=== PATIENT | male | born 1990 | race Caucasian/White ===

== ENCOUNTER 2017-09-01 10:54 | Emergency (ER) | payer OTHER ==
[~2017-09-01] VITALS: Ht 190.5 cm; Wt 104.3 kg
[~2017-09-01 10:54] MED LIST: ACET-2267 PO; ACHD5005 PO; CLIN300C11 PO; ETAN50DI2 SQ; L.AC1CAP6 PO
[2017-09-01] MEDS ORDERED: NS IV 1000 ML 1,000 ML IV ONE (11:13)
[2017-09-01] MEDS ORDERED: KETOROLAC 30 MG/ML VIAL IVP STA (11:13)
--- NOTE | 2017-09-01 11:24 | ED General ---
General Stated Complaint: WEAK, DISMISSED FROM HOSPITAL 08/28, CELLULITIS Source of Information: Patient Exam Limitations: No Limitations (SILVIA CABEZAS MD) History of Present Illness Date Seen by Provider: Sep 01, 2017 Time Seen by Provider: 11:08 Initial Comments Here with report of feeling weak and having some increased swelling after being discharged from the hospital earlier this week. He was seen, treated and ultimately released after presenting with left lower jaw facial cellulitis likely from tooth infection. Patient has been on clindamycin. States he was better but started getting worse overnight. Feels like he is just sick and has upper respiratory symptoms as well. Has sore throat and nasal congestion. He is on Enbrel for rheumatoid arthritis. Timing/Duration: 1-2 Days, Changing Over Time, Getting Worse Severity: Moderate Associated Systoms: No Chest Pain, No Cough, No Fever/Chills; Malaise; No Nausea/Vomiting, No Shortness of Air, No Weakness (SILVIA CABEZAS MD) Allergies and Home Medications Allergies Coded Allergies: cefaclor (Verified Allergy, Unknown, 09/01/17) Home Medications Acetaminophen 500 Mg Tablet, 1,000 MG PO Q6H PRN for PAIN-MILD, (Reported) Clindamycin HCl 300 Mg Capsule, 300 MG PO Q8H Prescribed by: JEANMARIE GRIFFITH on 08/28/17 1218 Etanercept 50 Mg/1 Ml Syringe, 50 MG SQ EVERY 2 WEEKS, (Reported) Hydrocodone Bit/Acetaminophen 1 Tab Tab, 1 TAB PO Q4H PRN for PAIN-MODERATE Prescribed by: JEANMARIE GRIFFITH on 08/28/17 1218 L.acidoph & Paracasei,B.lactis 1 Each Capsule, 1 EACH PO AC Prescribed by: JEANMARIE GRIFFITH on 08/28/17 1219 Patient Home Medication List Home Medication List Reviewed: Yes (SILVIA CABEZAS MD) Review of Systems Constitutional: see HPI; No fever; malaise EENTM: see HPI, dental problems, mouth pain, mouth swelling, nose congestion, throat pain Respiratory: no symptoms reported Cardiovascular: no symptoms reported Gastrointestinal: No abdominal pain, No nausea, No vomiting Genitourinary: no symptoms reported Musculoskeletal: no symptoms reported Skin: no symptoms reported (SILVIA CABEZAS MD) All Other Systems Reviewed Negative Unless Noted: Yes (SILVIA CABEZAS MD) Past Tppgmtb-Dlslkg-Dmkeir Hx Past Med/Social Hx: Reviewed Nursing Past Med/Soc Hx (SILVIA CABEZAS MD) Patient Social History Alcohol Use: Occasionally Uses Alcohol Beverage of Choice: Beer Recreational Drug Use: No Smoking Status: Never a Smoker Recent Foreign Travel: No Contact w/Someone Who Travel: No Recent Hopitalizations: No (SILVIA CABEZAS MD) Seasonal Allergies Seasonal Allergies: No (SILVIA CABEZAS MD) Past Medical History Surgeries: No Respiratory: No Cardiac: No Neurological: No Genitourinary: No Gastrointestinal: No Musculoskeletal: Yes Rheumatoid Arthritis Endocrine: No HEENT: No Cancer: No Psychosocial: No Integumentary: No Blood Disorders: No Adverse Reaction/Blood Tranf: No (SILVIA CABEZAS MD) Family Medical History Reviewed Nursing Family Hx (SILVIA CABEZAS MD) Heart Disease (SILVIA CABEZAS MD) Physical Exam Vital Signs Vital Signs - First Documented 09/01/17 11:04 Temp 99.3 Pulse 100 Resp 16 B/P (MAP) 143/97 (112) Pulse Ox 99 (MARINA MAY APRN) Vital Signs Capillary Refill : (SILVIA CABEZAS MD) General Appearance: No Apparent Distress, WD/WN HEENT: PERRL/EOMI, Pharyngeal Erythema, Other (dental caries near molar on left lower) Neck: Supple, Lymphadenopathy (L), Other (some fullness to the left side of the face below the left jaw but this is reportedly less than previous visit as evaluated by Marina May APRN.) Respiratory: Lungs Clear, Normal Breath Sounds Cardiovascular: Regular Rate, Rhythm, No Murmur Gastrointestinal: Non Tender, Soft Back: Normal Inspection, No CVA Tenderness, No Vertebral Tenderness Neurologic/Psychiatric: Alert, Oriented x3 Skin: Normal Color, Warm/Dry (SILVIA CABEZAS MD) Progress/Results/Core Measures Suspected Sepsis SIRS Temperature: Pulse: Respiratory Rate: Laboratory Tests 09/01/17 11:24: White Blood Count 7.6 Blood Pressure / Mean: Laboratory Tests 09/01/17 11:24: Creatinine 0.83, Platelet Count 207, Total Bilirubin 1.1H (SILVIA CABEZAS MD) Results/Orders Lab Results Laboratory Tests Test 09/01/17 11:24 Range/Units White Blood Count 7.6 4.3-11.0 10^3/uL Red Blood Count 5.54 4.35-5.85 10^6/uL Hemoglobin 15.4 13.3-17.7 G/DL Hematocrit 43 40-54 % Mean Corpuscular Volume 78 L 80-99 FL Mean Corpuscular Hemoglobin 28 25-34 PG Mean Corpuscular Hemoglobin Concent 36 32-36 G/DL Red Cell Distribution Width 13.1 10.0-14.5 % Platelet Count 207 130-400 10^3/uL Mean Platelet Volume 9.3 7.4-10.4 FL Neutrophils (%) (Auto) 75 42-75 % Lymphocytes (%) (Auto) 12 12-44 % Monocytes (%) (Auto) 10 0-12 % Eosinophils (%) (Auto) 3 0-10 % Basophils (%) (Auto) 0 0-10 % Neutrophils # (Auto) 5.7 1.8-7.8 X 10^3 Lymphocytes # (Auto) 0.9 L 1.0-4.0 X 10^3 Monocytes # (Auto) 0.7 0.0-1.0 X 10^3 Eosinophils # (Auto) 0.3 0.0-0.3 10^3/uL Basophils # (Auto) 0.0 0.0-0.1 10^3/uL Sodium Level 137 135-145 MMOL/L Potassium Level 4.4 3.6-5.0 MMOL/L Chloride Level 102 98-107 MMOL/L Carbon Dioxide Level 23 21-32 MMOL/L Anion Gap 12 5-14 MMOL/L Blood Urea Nitrogen 10 7-18 MG/DL Creatinine 0.83 0.60-1.30 MG/DL Estimat Glomerular Filtration Rate > 60 BUN/Creatinine Ratio 12 Glucose Level 103 70-105 MG/DL Calcium Level 10.0 8.5-10.1 MG/DL Total Bilirubin 1.1 H 0.1-1.0 MG/DL Aspartate Amino Transf (AST/SGOT) 24 5-34 U/L Alanine Aminotransferase (ALT/SGPT) 43 0-55 U/L Alkaline Phosphatase 74 40-136 U/L C-Reactive Protein High Sensitivity 4.07 H 0.00-0.50 MG/DL Total Protein 8.0 6.4-8.2 GM/DL Albumin 4.5 3.2-4.5 GM/DL (MARINA MAY APRN) Medications Given in ED Current Medications Medications Dose Ordered Sig/Petros Route Start Time Stop Time Status Last Admin Dose Admin Sodium Chloride 1,000 ml @ 0 mls/hr Q0M ONCE IV 09/01/17 11:13 09/01/17 11:15 DC 09/01/17 11:34 1,000 MLS/HR (MARINA MAY APRN) Vital Signs/I&O 09/01/17 11:04 Temp 99.3 Pulse 100 Resp 16 B/P (MAP) 143/97 (112) Pulse Ox 99 (MARINA MAY APRN) Vital Signs/I&O Capillary Refill : (SILVIA CABEZAS MD) Progress Note : Progress Note Seen and evaluated. IV, labs, normal saline 1 L bolus and Toradol 30 mg IV ordered. Monitor patient. (SILVIA CABEZAS MD) Diagnostic Imaging Diagonstic Imaging: Xray Plain Films/CT/US/NM/MRI: chest Comments NAME: ALEXEI [facility]ATT [facility] REC#: [id number] PT STATUS: REG ER : 1990 PHYSICIAN: SILVIA CABEZAS MD ADMIT DATE: 09/01/17/ER Draft Date of Exam:09/01/17 CHEST PA/LAT (2 VIEW) INDICATION: Productive cough. COMPARISON: None. FINDINGS: Frontal and lateral views of the chest demonstrate clear lungs bilaterally. The heart is normal. There is no pneumothorax. Osseous structures are normal. IMPRESSION: Negative chest. Dictated on workstation # [id number] Dict: 09/01/17 1211 Trans: 09/01/17 1214 [facility] [id number] Interpreted by: SARAH BURNETTE Electronically signed by: (SILVIA CABEZAS MD) Departure Impression Primary Impression: Viral upper respiratory infection Additional Impression: Dental infection Disposition: 01 HOME, SELF-CARE Condition: Stable Departure-Patient Inst. Decision time for Depature: 12:18 (MARINA MAY APRN) Referrals: VILLA SMITH MD (PCP) Primary Care Physician [facility] (Family) Primary Care Physician Patient Instructions: Dental Specialists, VIRAL RESP ILLNESS-ADULT Add. Discharge Instructions: 1.continue the clindamycin antibiotics 2. Follow-up with your doctor on Sunday for recheck. Follow-up with dentist of your choosing as soon as possible you're able to get in. SILVIA CABEZAS MD Sep 01, 2017 11:23 MARINA MAY APRN Sep 01, 2017 12:19
[2017-09-01 11:32] LABS: BASOPHILS % (AUTO) 0 % (0-10); EOSINOPHILS # (AUTO) 0.3 10^3/uL (0.0-0.3); EOSINOPHILS % (AUTO) 3 % (0-10); HEMATOCRIT 43 % (40-54); HEMOGLOBIN 15.4 G/DL (13.3-17.7); LYMPHOCYTES # (AUTO) 0.9 X 10^3 (1.0-4.0); LYMPHOCYTES % (AUTO) 12 % (12-44); MEAN CORPUSCULAR HEMOGLOBIN 28 PG (25-34); MEAN CORPUSCULAR HGB CONC 36 G/DL (32-36); MEAN CORPUSCULAR VOLUME 78 FL (80-99); MEAN PLATELET VOLUME 9.3 FL (7.4-10.4); MONOCYTES # (AUTO) 0.7 X 10^3 (0.0-1.0); MONOCYTES % (AUTO) 10 % (0-12); NEUTROPHILS # (AUTO) 5.7 X 10^3 (1.8-7.8); NEUTROPHILS % (AUTO) 75 % (42-75); PLATELET COUNT 207 10^3/uL (130-400); RED BLOOD COUNT 5.54 10^6/uL (4.35-5.85); RED CELL DISTRIBUTION WIDTH 13.1 % (10.0-14.5); WHITE BLOOD COUNT 7.6 10^3/uL (4.3-11.0)
[2017-09-01 11:50] LABS: ALANINE AMINOTRANSFERASE 43 U/L (0-55); ALBUMIN 4.5 GM/DL (3.2-4.5); ALKALINE PHOSPHATASE 74 U/L (40-136); BILIRUBIN,TOTAL 1.1 MG/DL (0.1-1.0); BUN/CREATININE RATIO 12; CARBON DIOXIDE 23 MMOL/L (21-32); CHLORIDE 102 MMOL/L (98-107); CREATININE SERUM 0.83 MG/DL (0.60-1.30); GFR ESTIMATED > 60; GLUCOSE 103 MG/DL (70-105); POTASSIUM 4.4 MMOL/L (3.6-5.0); SODIUM 137 MMOL/L (135-145)
--- NOTE | 2017-09-01 12:14 | Diagnostic Imaging Report ---
INDICATION: Productive cough. COMPARISON: None. FINDINGS: Frontal and lateral views of the chest demonstrate clear lungs bilaterally. The heart is normal. There is no pneumothorax. Osseous structures are normal. IMPRESSION: Negative chest. Dictated by: Dictated on workstation # [id number]
[2017-09-01 12:41] VITALS: BP 127/83
== END 2017-09-01 12:41 | disposition home or self-care (01) ==
LOC: EDUNIT# 10:54 → ER 10:58
DX: J06.9 Acute upper respiratory infection, unspecified (principal); K04.7 Periapical abscess without sinus; M06.9 Rheumatoid arthritis, unspecified; Z88.1 Allergy status to other antibiotic agents
CPT/HCPCS: 36415; 71046; 80053; 85025; 86141; 96361; 96374